=== PATIENT | male | born 1985 | race American Indian/Alaskan Native ===

== ENCOUNTER 2016-10-19 12:11 | Emergency (ER) | payer MEDICAID ==
[2016-10-19 12:26] VITALS: BP 142/90
--- NOTE | 2016-10-19 13:07 | Emergency Department Report ---
Entered by BING WEST, acting as scribe for CHEVY PITT NP. Chief Complaint: Earache Stated Complaint: CHERY EVAL Time Seen by Provider: 10/19/16 13:00 - HPI History of Present Illness: 31 year old male who is non-toxic, in no acute distress, not ill appearing, with PMHx autism presents for evaluation of right ear today. Mother reports patient has been pulling on ear and has Hx of recurrent right ear cerumen impaction. Mother reports patient is otherwise at baseline and appears in normal health. - ROS Review of Systems: Reports right ear pulling - Exam Vital Signs: Vital Signs 10/19/16 12:21 Temperature 99.4 F Pulse Rate 107 H Respiratory 20 Rate Blood Pressure 142/90 O2 Sat by Pulse 99 Oximetry Physical Exam: Patient is non-toxic appearing and in no acute distress. ENT exam deferred due to patient Hx of violence and aggressive behavior ( reported by mother). MSE screening note: Focused history and physical exam performed. Due to findings the following was ordered: No labs ordered in MSE due to patient's reported of violence and aggressive behavior. ED Disposition for MSE Condition: Stable This documentation as recorded by the scribe,BING WEST,accurately reflects the service I personally performed and the decisions made by YOANDY nichole MARTIN, BENEDICT.
--- NOTE | 2016-10-20 03:20 | Emergency Department Report ---
ED ENT HPI - General Chief complaint: Earache Stated complaint: MH EVAL Time Seen by Provider: 10/20/16 03:01 Source: patient, EMS Mode of arrival: Ambulatory Limitations: No Limitations - History of Present Illness Initial comments: This is a 31-year-old special needs young man brought in accompanied by his mother. She indicates that she was with mental health today and was told by her mental health provider to bring her son into the emergency Department for procedural sedation so that the earwax could be removed from his ears. He apparently has been rubbing at his ears for the past couple of weeks. Mother indicates that he's had myringotomy tubes that were removed several months ago. He has had those since he was 13. The patient does require ear drops for cerumen regularly. The mother indicates she hasn't used these drops for the past several weeks however. He states that her son won't let her put them in. She specifically asking that we sedate him so that we can remove the earwax today. From a mental health standpoint, she indicates that nothing needs to be done on our end and that she has mental health appointment with the patient's primary care provider actually later today. - Related Data Previous Rx's Medication Instructions Recorded Last Taken Type LORazepam [Ativan] 1 mg PO Q8H PRN #20 tab 03/15/13 Unknown Rx Allergies Allergy/AdvReac Type Severity Reaction Status Date / Time No Known Allergies Allergy Unverified 03/15/13 22:02 ED Dental HPI - General Chief complaint: Earache Stated complaint: MH EVAL Time Seen by Provider: 10/20/16 03:01 Source: patient, EMS Mode of arrival: Ambulatory Limitations: No Limitations - Related Data Previous Rx's Medication Instructions Recorded Last Taken Type LORazepam [Ativan] 1 mg PO Q8H PRN #20 tab 03/15/13 Unknown Rx Allergies Allergy/AdvReac Type Severity Reaction Status Date / Time No Known Allergies Allergy Unverified 03/15/13 22:02 ED Review of Systems ROS: Stated complaint: MH EVAL Other details as noted in HPI Comment: completely from the mother as patient is not able to give history. ED caveat is taken Constitutional: denies: fever ENT: ear pain. denies: throat pain, hearing loss, congestion Respiratory: denies: cough, SOB with exertion Gastrointestinal: denies: nausea, vomiting ED Past Medical Hx - Past Medical History Previous Medical History?: Yes Hx Psychiatric Treatment: Yes (Behavioral) Additional medical history: Autism - Social History Smoking Status: Never Smoker Substance Use Type: Prescribed - Medications Home Medications: Home Medications Medication Instructions Recorded Confirmed Last Taken Type LORazepam [Ativan] 1 mg PO Q8H PRN #20 tab 03/15/13 Unknown Rx ED Physical Exam - General Limitations: No Limitations General appearance: alert, in no apparent distress, other (pleasant smiling shakes my hand vigorously.) - Head Head exam: Present: atraumatic, normocephalic - Eye Eye exam: Present: PERRL, EOMI - ENT ENT exam: Present: normal orophraynx, mucous membranes moist, other (right ear canal with small amounts of cerumen. There is a portion of the cerumen that does appear to be impacting directly against the tympanic membrane. The upper third of the tympanic membrane is visible and appears normal in nature. Left ear canal with a small amount of cerumen also noted. Again the top third of the tympanic membrane is visualized. No erythema is noted.) - Neck Neck exam: Present: normal inspection, full ROM, other (no postauricular or preauricular adenopathy is noted.). Absent: lymphadenopathy - Respiratory Respiratory exam: Present: normal lung sounds bilaterally. Absent: wheezes, rales - Cardiovascular Cardiovascular Exam: Present: regular rate, normal rhythm - GI/Abdominal GI/Abdominal exam: Present: soft. Absent: tenderness, guarding - Neurological Exam Neurological exam: Present: other (moves all extremities appropriately.) - Psychiatric Psychiatric exam: Present: other (wasn't, calm, appropriate in general. Does not verbalize any discomforts to me.) ED Course Vital Signs 10/19/16 12:21 Temperature 99.4 F Pulse Rate 107 H Respiratory 20 Rate Blood Pressure 142/90 O2 Sat by Pulse 99 Oximetry - Reevaluation(s) Reevaluation #1: 10/20/16 06:06 I indicated to the patient's mother that there really was not a lot of earwax and I did not feel less cerumen removal is necessary at this time. She was fairly insistent. I indicated that I felt it was better to just use the deep proximal drops that she's been using. She indicates that this is so difficult at home she would prefer to do it here. When determining how to do this she indicates the only way to do it is by giving him a gas. I did express that I do not have nitrous oxide nor other gases here that would be able to accomplish her desire. I indicated I couldn't give him medications through IV. She states this is an impossibility. She reports that he will be too agitated F Roel Sherwood tried to poke him for an IV. I indicated that I had no other way of doing this. Indicated as an outpatient she could arrange for outpatient surgical field where anesthesia could be given by gas form. Indicated that this was not possible through the emergency department however. She ultimately decides not to do anything at this time. She does indicate that she'll just follow up with her mental health provider and try to get more sedation for her son on a chronic basis so that she can do the deep proximal drops to home. Frankly that's probably the best solution. Critical care attestation.: If time is entered above; I have spent that time in minutes in the direct care of this critically ill patient, excluding procedure time. ED Disposition Clinical Impression: Otalgia of both ears Disposition: DISCHARGED TO HOME OR SELFCARE Is pt being admited?: No Does the pt Need Aspirin: No Condition: Stable Additional Instructions: Use debrox or other cerum softening drops in the ears twice daily. After a few days try gentle irrigating the ears in the shower. Follow with mental health as scheduled. Referrals: PRIMARY CARE, [Primary Care Provider] - 3-5 Days
[2016-10-20] MEDS ORDERED: NACL 0.9% 500 ML IR ONE (03:30)
[2016-10-20] MEDS ORDERED: HYDROGEN PEROXIDE ONE (03:31)
[2016-10-20] MEDS ORDERED: KETALAR IV ONE (03:43)
[2016-10-20] MEDS ORDERED: KETALAR ONE (03:46)
== END 2016-10-20 05:30 | disposition home or self-care (01) ==
LOC: ED 12:11
DX: H92.03 Otalgia, bilateral (principal)
CPT/HCPCS: 99283